=== PATIENT | male | born 2000 | race Caucasian/White ===

== ENCOUNTER 2019-02-17 22:17 | Emergency (ER) | payer SELFPAY ==
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
== END 2019-02-17 23:32 | disposition home or self-care (01) ==
LOC: JD.ED 22:17
DX: S02.2XXA Fracture of nasal bones, initial encounter for closed fracture (principal); S02.5XXA Fracture of tooth (traumatic), initial encounter for closed fracture; S09.90XA Unspecified injury of head, initial encounter; H92.23 Otorrhagia, bilateral; Y04.0XXA Assault by unarmed brawl or fight, initial encounter
CPT/HCPCS: 99282; 99283